=== PATIENT | male | born 1985 | race Two or more races ===

== ENCOUNTER 2019-03-13 14:47 | Emergency (ER) | payer MEDICAID ==
[~2019-03-13] VITALS: Ht 172.7 cm; Wt 65.0 kg
[2019-03-13] MEDS ORDERED: KETOROLAC 60MG/2ML VIAL IM ONE (16:15)
[2019-03-13] MEDS ORDERED: HYDROCODONE/ACETAMINOPHEN 5/325MG TABLET PO ONE (16:15)
[2019-03-13 18:49] VITALS: BP 108/65
== END 2019-03-13 18:51 | disposition home or self-care (01) ==
LOC: ER 14:47
DX: S92.252A Displaced fracture of navicular [scaphoid] of left foot, initial encounter for closed fracture (principal); Z88.0 Allergy status to penicillin; W19.XXXA Unspecified fall, initial encounter; Y93.89 Activity, other specified; Y92.091 Bathroom in other non-institutional residence as the place of occurrence of the external cause; Y99.8 Other external cause status
CPT/HCPCS: 29125; 73080; 73100; 73130; 96372; 99283; J1885